=== PATIENT | male | born 2000 | race Caucasian/White ===

== ENCOUNTER 2021-05-18 07:00 | Outpatient (REF) | payer OTHER, SELFPAY ==
[2021-05-18 07:38] LABS: COVID-19 Test Negative (Negative)
== END 2021-05-18 07:01 | disposition home or self-care (01) ==
LOC: HO.LAB 07:00
PROVIDERS: Visit Provider Internal Medicine
DX: Z20.822 Contact with and (suspected) exposure to COVID-19 (principal)
CPT/HCPCS: 87635

== ENCOUNTER 2022-02-04 11:57 | Emergency (ER) | payer OTHER, SELFPAY ==
[2022-02-04 14:02] VITALS: BP 122/72; PULSE 63; RESP 18; TEMP 36.7; O2SAT 99; BMI 20.3
--- NOTE | 2022-02-04 14:03 | ED_ITS ---
HPI - General Adult General Chief complaint: Body Fluid Exposure Stated complaint: Scratch from PT Time Seen by Provider: 02/04/22 14:03 Source: patient Mode of arrival: ambulatory Limitations: no limitations History of Present Illness HPI narrative: Patient is a 21 year old male presenting to the emergency department today with a right forearm abrasion. 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 Patient states that the patient is a known IV drug user and the abrasion was bleeding. Patient denies any dizziness, lightheadedness, abdominal pain, nausea, vomiting, fever, chills, blurry vision, double vision, loss of vision, chest pain, difficulty breathing, shortness of breath, back pain, night sweats, pain with urination, increased urinary frequency, increased urinary urgency, blood in his urine or stool, syncope or a near syncopal episode, bowel incontinence, bladder incontinence, bowel retention, bladder retention, or any other complaints at this time. Onset (ago): hour(s) Location: right and upper extremity Radiation: non-radiation Severity: mild Severity scale (1-10): 2 Quality: dull Pain Consistency: constant Relieving factors: none Exacerbating factors: none Associated symptoms: denies other symptoms Treatments prior to arrival: none Related Data Allergies Allergy/AdvReac Type Severity Reaction Status Date / Time No Known Allergies Allergy Verified 02/04/22 14:02 Review of Systems Constitutional: Constitutional: Reports no additional constitutional complaints, Denies chills, Denies fever(s) and Denies night sweats Eyes: Eyes: Reports no additional eye complaints, Denies blurry vision, Denies change in vision, Denies diplopia, Denies eye discharge, Denies loss of vision and Denies eye pain ENT: Denies dizziness Cardiovascular: Cardiovascular: Reports no additional cardiovascular complaints, Denies chest pain, Denies lightheadedness, Denies Loss of Consciousness and Denies dyspnea Respiratory: Respiratory: Reports no additional respiratory complaints and Denies dyspnea Gastrointestinal: Gastrointestinal: Reports no additional gastrointestinal complaints, Denies abdominal pain, Denies melena, Denies hematochezia, Denies change in bowel habits and Denies change in stool character Genitourinary: Genitourinary: Reports no additional male genitourinary complaints, Denies hematuria, Denies oliguria, Denies difficulty urinating, Denies dysuria, Denies urinary frequency, Denies urinary hesitancy, Denies urinary incontinence and Denies urinary urgency Musculoskeletal: Musculoskeletal: Reports no additional musculoskeletal complaints, Denies numbness and Denies tingling Integumentary/Breasts: Comments: right forearm abrasion Neurologic: Denies dizziness, Denies loss of vision, Denies numbness and Denies tingling Psychiatric: Psychiatric: Reports no additional psychiatric complaints Endocrine: Endocrine: Reports no additional endocrine complaints Hematologic/Lymphatic: Hematologic/Lymphatic: Reports no additional hematologic/lymphatic complaints Allergic/Immunologic: Allergic/Immunologic: Reports no additional allergic/immunologic complaints [facility] Past Medical History Attestation statement: The following information was validated with the patient. Source: old records reviewed Social History Social History Advance Directives: No Advance Directives Information Provided: Yes Physical Exam ED Vital Signs: Vital Signs - 24 hr 02/04/22 14:02 Temperature 98.1 F Pulse Rate 63 Respiratory Rate 18 Blood Pressure 122/72 Pulse Oximetry 99 Oxygen Delivery Method Room Air BMI result Body Mass Index 20.3 Const General: cooperative, no acute distress, alert and awake Nutritional Appearance: well nourished Orientation/consciousness: patient oriented x3 Limitations: no limitations HENMT Head: Yes normal to inspection and Yes atraumatic Ears: hearing grossly normal bilaterally and external ears normal General nose exam: Normal external nose present, no nasal discharge noted and no epistaxis Face and sinus: Yes normal facial exam, No abrasion and No laceration Mouth: Normal oral and palatal mucosa present, no drooling and no muffled voice Eyes General: appearance normal, both eyes and all related structures Periorbital: periorbital findings normal Eyelids: Yes eyelids normal Conjunctivae: conjunctivae normal Pupils: Equal, round and reactive pupils present EOM: EOMs intact bilaterally Neck Neck: Yes normal visual inspection, Yes full ROM and Yes no lymphadenopathy Chest Chest palpation & inspection: normal inspection of the chest Resp Effort & Inspection: normal respiratory effort and able to speak in complete sentences Auscultation: clear to auscultation bilaterally Cardio Rate: regular rate Rhythm: regular rhythm GI Inspection: Yes normal to inspection Skin Other: right forearm abrasion, no active bleeding Neuro General: patient oriented x3 and moves all extremities Cranial nerves: Yes Equal, round and reactive pupils present Cognition (Neuro): normal cognition Motor exam (neuro): 5/5 motor strength present throughout Sensory Exam: Normal double simultaneous stimulation for sensation Coordination: [id number] test normal Extrem General: Yes normal to inspection, Yes full ROM and Yes capillary refill normal Psych Appearance: grossly normal Mental Status: mental status grossly normal Affect: normal affect Attitude: cooperative Thought process: Normal thought process present Thought content: Normal thought content present Insight: Good insight present (Psych) Medical Decision Making MDM Narrative Medical decision making narrative: Patient is a 21 year old male presenting to the emergency department today with right forearm abrasion. Patient's physical exam showed a small abrasion on the right dorsal forearm with no active bleeding. Patient's exposure blood work is pending. At this time, the patient does not need PrEp medication and will wait for results. I explained my physical exam findings to the patient. I answered all questions asked by the patient. I stressed the importance of the patient taking his medication as prescribed. I stressed the importance of the patient following up with his primary care provider. I stressed the importance of the patient returning to the emergency department immediately if his symptoms were to worsen or if he were to develop any dizziness, shortness of breath, difficulty breathing, chest pain, blurry vision, loss of vision, nausea, vomiting, abdominal pain, fever, chills, back pain, or any other complaints. Patient verbalized agreement and understanding with this treatment plan and discharge. Medical Records Medical records reviewed: Yes I reviewed the patient's medical records. Lab Data Lab results reviewed: Yes I reviewed the patient's lab results. Discharge Plan Discharge Clinical Impression: Abrasion, Employee exposure to body fluids Patient Disposition: Home, Self-Care Instructions: Abrasion (ED), Body Substance Exposure (ED) Additional Instructions: Keep the abrasion clean. Follow up with your primary care provider. Return to the emergency department immediately if your symptoms worsen or if you develop any dizziness, shortness of breath, difficulty breathing, chest pain, blurry vision, loss of vision, nausea, vomiting, abdominal pain, fever, chills, back pain, or any other complaints. Referrals: [facility] Family Medicine [Provider Group] (Call to establish and follow up with a primary care provider. If you already have a primary care provider, please follow up with them. ) [facility] [Provider Group] (Call to establish and follow up with a primary care provider. If you already have a primary care provider, please follow up with them. ) [facility] [Provider Group] (Call to establish and follow up with a primary care provider. If you already have a primary care provider, please follow up with them. ) Print Language: Turkish
[2022-02-04 15:08] LABS: HBS Num1 84.77 mIU/mL (0-7.99); HBc Num1 0.04 S/CO (0.00-0.79); HBsAGNum1 0.27 S/CO (0.00-0.99); HIV AB/AG Nonreactive (Nonreactive); HIV Num 1 0.06 S/CO (0.00-0.99); Hepatitis B Core Antibody Nonreactive (Nonreactive); Hepatitis B Surface Antigen Negative (Negative); ~HepC Num1 0.42 S/CO (0.00-0.79); ~Hepatitis B Surface Antibody REACTIVE (Nonreactive); ~Hepatitis C Antibody Nonreactive (Nonreactive)
== END 2022-02-04 14:32 | disposition home or self-care (01) ==
PROVIDERS: Physician Assistant Medical; Emergency Provider Internal Medicine; PCP Pediatrics
DX: S50.811A Abrasion of right forearm, initial encounter (principal); M79.631 Pain in right forearm; Y04.8XXA Assault by other bodily force, initial encounter; Y93.9 Activity, unspecified; Y92.239 Unspecified place in hospital as the place of occurrence of the external cause; Y99.0 Civilian activity done for income or pay; Z77.21 Contact with and (suspected) exposure to potentially hazardous body fluids; Z79.899 Other long term (current) drug therapy
CPT/HCPCS: 36415; 86704; 86706; 86803; 87340; 87389; 99282; 99283

== ENCOUNTER 2022-03-20 07:34 | Emergency (ER) | payer BC, SELFPAY ==
--- NOTE | ~2022-03-20 | XR_ITS ---
EXAMINATION: XR CHEST CLINICAL INFORMATION: Right-sided chest pain, feels fluttering with inspiration. COMPARISON: None TECHNIQUE: 2 views of the chest were obtained. FINDINGS: No significant abnormality is noted involving the heart, lungs, mediastinum, bony thorax or soft tissues. XR/XR chest 2V IMPRESSION: No acute cardiopulmonary process.
--- OUTSIDE RECORDS SUMMARY | 2022-03-20 07:37 | XMS_ITS | Continuity of Care Document ---
:2000 Author Organization [facility] Care Team Providers Name Role Phone [facility] Unavailable Unavailable Medications Combined list of outpatient medications from Department of Defense and Veterans [facility] facilities. Medications provided include 1) outpatient medications from the last 15 months, and 2) patient-reported medications. Medication Details Route Status Patient Prescription Prescription Last Ordering Order Source Instructions Expires Number Dispense Provider Date Date erythromyci Left Complet 09/28/2020 A mbulat n 0.5% 1 appl(s), Eye-Left, QID, X 5 days, # 3.5 g, 0 total refill(s), Acute, 1 appl(s) Eye-Left QID,x5 days, Pharmacy: [facility] [Not active] eye ed ory ophthalmic Pharmac ointment y hydrocortis hydrocortisone 1% topical cream Ordered Ambulat one 1% Start Date: 07/15/20 ory topical Status: Ordered Ph armac cream y Immunizations Combined list of available immunizations from the Department of Defense and Veterans Affairs facilities. 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 Vital Sign Value Date Comments Source Systolic Blood Pressure 118mm[Hg] 09/23/2020 [facility]00 Diastolic Blood Pressure 68mm[Hg] 09/23/2020 [facility] 22:18:00 Mean Arterial Pressure, 85mm[Hg] 09/23/2020 [facility] Calc 22:18:00 Peripheral Pulse Rate 91bpm 09/23/2020 [facility] 22:18:00 Respiratory Rate 18br/min 09/23/2020 [facility] 22:18:00 Temperature Temporal 37.2Cel 09/23/2020 [facility] Artery 22:18:00 BP Site 09/23/2020 [facility] jeana 22:18:00 Blood Pressure Manual 09/23/2020 [facility] 22:18:00 Encounters Combined list of: 1) Encounters from Department of Veterans Affairs facilities going back up to the last 18 months. 2) Encounters from the Department of Defense facilities going back up to 280 months. Location Location Encounter Encounter Reason Attending ADM DC Stat us Disposition Source Details Type Number For Provider Date Date Visit OUTPATIENT [id number] Notes DANNIELLE 05/17 Release d w/o General 3 Entered TRUNG Osman simmons by: GERA Butts May Marg[place], 636 [place](IEP ------- [place] ------- s ------- Initial ------- Entry) -- DAY 1 003 OUTPATIENT [id number] PHILLIP 05/18 Release d w/o General 5 JUN Limitations [facility]el [facility] [place] [facility] OUTPATIENT [id number] Gill DODSON 05/18 Released w/o General 5 Entered VINCENT Boss Osman baezd by: Christiane Dent [facility] May [place], 1038 [place](IEP ------- Hearing ------- Conserv ------- ation ------- Exam) -- 003 OUTPATIENT [id number] Gill PANDYA 05/20 Relea sed w/o General 9 Entered BORIS Limitations Keira simmons by: CHRISTIANE HUITRON [facility] KATHRYN Robison [place](IEP 0624 [place] ------- s ------- Initial ------- Entry) ------- -- [id number] Day3 003 OUTPATIENT [id number] OCTAVIO Aguiar 06/16 Admit stacey General 2 Entered Ricki by: Janae Kimball DAYANA Robison Jun [place](Opsu 1008 rge ------- Multi-S ------- pecialt ------- y) ------- -- ISOLATI ON OUTPATIENT [id number] Notes ELANA, 07/13 Released w/o General 4 Entered KATHRYN Limitations Suzy rd by: SKYLAR DANG [facility] ,GERA [place], [address] [place](IEP ------- [place] ------- s ------- Initial ------- Entry) -- C CO 787 PED B/MAKAYLA OUTPATIENT [id number] Notes SHAHIDA, 08/01 08/01 Released w/o General 4 Entered PETER N /2020 Osman Haddad nahun by: Margarito BAILEY N,COLLIN [place], 1548 [place](AMH ------- M01B ------- Marie) ------- ------- -- COVID Testing (contac t) Procedures Combined list of: 1) Procedures from Department of Veterans Affairs facilities going back up to the last 18 months, not all VA non-surgical procedures are included; 2) All procedures from the Department of Defense facilities. Procedure Procedure Type Code Date Perfomer Comments Sourc e No data available Am bulatory for this section [facility] [address] VINCENT DODSON [facility] Testing Testing [place] [address] [facility] Visual Acuity, Visual Acuity, JUN M Quantitative, Quantitative, Bilateral Bilateral Venipuncture Venipuncture 95366 [facility] TRUNG RBC G6PD Screening RBC G6PD Screening 53995 [facility] TRUNG Meningococcal Meningococcal 53593 [facility] Polysaccharide Polysaccharide CHANI, Diphtheria Toxoid Diphtheria Toxoid CHRISTIANE N Conjugate Vaccine Conjugate Vaccine Immunization Immunization 96301 MARREROJIME Do D Administration By Administration By CHANI, Injection, One Injection, One CHRISTIANE N Vaccine Vaccine Immunization Immunization 47999 MARREROJIME Do D Administration By Administration By CHANI, Injection, Each Injection, Each CHRISTIANE N Additional Vaccine Additional Vaccine Hep B Vaccine Hep B Vaccine 18527 [facility] (Active); (Active); CHANI, Adolescent (2 Dose Adolescent (2 Dose CHRISTIANE N Schedule) Schedule) Vaccines Viral Vaccines Viral 85764 [facility] Varicella (Active) Varicella (Active) CHANI, CHRISTIANE N Tdap Vaccine Tdap Vaccine 72437 [facility] Do D CHANI, CHRISTIANE N Vaccines Viral Vaccines Viral 50986 [facility] Polio, Inactivated Polio, Inactivated CHANI, CHRISTIANE N Physician Physician 20473 [facility] Supervised Supervised CHANI, Injection Injection CHRISTIANE N Intramuscular Intramuscular Antibiotic Antibiotic Vaccines Vaccines 80269 [facility] Adenovirus Type 4 Adenovirus Type 4 CHANI, Live, For Oral Use Live, For Oral Use CHRISTIANE N Vaccines Vaccines 75893 [facility] Adenovirus Type 7 Adenovirus Type 7 CHANI, Live, For Oral Use Live, For Oral Use CHRISTIANE N Viral Flu Vacc Viral Flu Vacc 23347 [facility] Cell Culture Cell Culture CHANI, Deriv, Antibiotic Deriv, Antibiotic CHRISTIANE N Free, Free, Quadrivalent, Quadrivalent, 0.5mL, IM 0.5mL, IM INFLUENZA VIRUS 05/20/19 [facility] VACCINE, 21 QUADRIVALENT (CCIIV4), DERIVED FROM CELL CULTURES, SUBUNIT, ANTIBIOTIC FREE, 0.5 ML DOSAGE, FOR INTRAMUSCULAR USE AUDIOMETRIC 05/18/19 [facility] TESTING OF GROUPS 21 SCREENING TEST OF 05/18/19 Do D VISUAL ACUITY, 21 QUANTITATIVE, BILATERAL [id number] 05/17/19 D oD E DEHYDROGENASE 21 (G6PD); SCREEN Social History Combined list of available smoking, tobacco, and other social history from Department of Defense andVeterans Affairs facilities. Social History Type Response Date Comment Source Smoking Status Never (less than 100 09/23/2020 [facility] in lifetime) This section is an [facility] empty social history section. Assessment and Plan Combined list of future care activities from Department of Defense and Veterans Affairs facilities (e.g., assessment and plan notes, appointments, orders, and referrals). Additional future care activities may be listed in the Plan of Care section. Result Assessment and Plan Date Source Assessment and Plan Extracted from:Title: L upper eyelid stye [facility]ulatory [facility] Author: SHYAM KELLY NP Date: 09/23/20 1.?Hordeolum internum of left upper eyelid ?Pt is a 20 yo male Basic [facility] who presents today for 24 hours of L upper eyelid swelling. Pt treated with erythromycin ointment. ? Medications ?erythromycin 0.5% ophthalmic ointment, 1 appl( s), Eye-Left, QID ? ? Patient instructed to visit nearest emergency room for new or worsening symptoms, high fevers, chest pain, difficulty breathing or swallowing, vomiting, or with any questions or concerns.? Followu p with primary care provider in the next few days if symptoms persist. I have discussed my thought process, likely diagnosis, plan of care and strict followup and return precautions with the patient/fam amber. I also explained that? disease processes also involve in today's diagnosis is made based on current symptoms. Should the symptoms change, a new diagnosis maybe substituted. Patient/family were pleased with the care and verbalized agreement with the plan of care and follow-up. Questions/concerns addressed. ? ? ? Ordered: Office Visit Level 2 Est 83652 ? CPT Shyam Kelly DNP Family Nurse Practitioner LOCATED WITHIN [facility] ? ? ? Functional Status Combined list of recent functional and cognitive assessments recorded at Department of Defense and Veterans Affairs (VA).VA Functional [place] Measurement (FIM) Scale: 1 = Total Assistance (Subject = 0% +), 2 = Maximal Assistance (Subject = 25% +), 3 = Moderate Assistance (Subject = 50% +), 4 = Mi nimal Assistance (Subject = 75% +), 5 = Supervision, 6 = Modified [place] (Device), 7 = Complete [place] (Timely, Safely). Assessment Source Assessment Type Assessment Assessment Assessmen t Date/Time Skill Score Details No data available for this section
--- OUTSIDE RECORDS SUMMARY | 2022-03-20 07:37 | XMS_ITS ---
:2001 External Reference #:[id number] Author Care Team Providers Name Role Phone Ruddy Cheney Primary Care Provider Unavailable Allergies Code Code System Name Reaction Severity Status Onset NKDA ? Medications Name Status Start Date Stop Date ? ? amoxicillin 500 mg capsule Active ? Not a vailable TAKE 1 CAPSULE BY MOUTH TWICE A DAY FOR 10 DAYS naproxen 500 mg tablet Completed ? 9 prednisone 20 mg tablet Active ? Not avai lable TAKE 2 TABLETS BY MOUTH EVERY DAY FOR 5 DAYS tobramycin 0.3 % eye drops Active ? Not a vailable Problems Name Status Onset Date Source ? Headache Active 11/03/2018 ? Procedures Date Name Performed by ? 03/24/2019 [facility] Main Office [address] [place] [address] (Work Place) Results Lab Results Date Name Specimen Result Interpretation Description Value Range Status Address ? 09/14/2021 Strep Group a, ? New Strep negative ? ? Main DNA, Swab Rapid Dna Offi ce: [address], [place] 09/14/2021 Mononucleosis, Blood ? [place] positive ? ? Main Heterophile Ab, capillary Office: [address], [place] 03/24/2019 Hemoglobin Blood ? Results 15.0 ? ? Main (Hb), capillary Office: [address], [place] 03/24/2019 [facility] ? Right Ear normal ? ? Main 500Hz Office: [address], [place] ? ? ? Left Ear normal ? ? Main 500Hz Office: [address], [place] ? ? ? Right Ear normal ? ? Main 1000Hz Office: [address], [place] ? ? ? Left Ear normal ? ? Main 1000Hz Office: [address], [place] ? ? ? Right Ear normal ? ? Main 2000Hz Office: [address], [place] ? ? ? Left Ear normal ? ? Main 2000Hz Office: [address], [place] ? ? ? Right Ear normal ? ? Main 4000Hz Office: [address], [place] ? ? ? Left Ear normal ? ? Main 4000Hz Office: [address], [place] 03/24/2019 Visual Acuity* ? R Eye 20/20 ? ? Main Uncorrected Offic e: [address], [place] ? ? ? L Eye 20/20 ? ? Main Uncorrected Offic e: [address], [place] Past Encounters 10/05/2021 Infectious Mononucleosis; Patient Condit ion Resolved Ariella Hernandez, VANNP: [address] [facility] [address], [place] [address], Ph. 09/14/2021 Pain in Throat; Infectious Mononucleosis ; Enlarged Tonsil Patti Marie, CPNP: [address], [place] [address], Ph. Social History Tobacco Smoking Status Never Smoker Vaccine List Vaccine Type DTaP 2001 2001 2001 09/09/2002 03/12/2006 Hep A, ped/adol, 2 dose 05/24/2014 06/16/2016 Hep B, unspecified formulation 2001 2001 2001 Hib, unspecified formulation 2001 2001 09/09/2002 Influenza, injectable,quadrivalent, pres ervative free, pediatric 05/22/2013 IPV 2001 2001 09/09/2002 03/12/2006 MCV4, unspecified formulation 08/27/2012 03/25/2017 MMR 06/10/2002 03/12/2006 pneumococcal conjugate PCV 7 2001 2001 2001 Tdap 08/27/2012 varicella 2002 08/25/2010 Plan of Care Reminders Provider Appointments None recorded. ? ? Lab None recorded. ? ? Referral None recorded. ? ? Procedures None recorded. ? ? Surgeries None recorded. ? ? Imaging None recorded. ? ? Vitals 10/05/2021 08:00AM OFFICE VISIT Weight 131 lbs 5 oz 09/14/2021 08:30AM SICK VISIT Weight 132 lbs 5 oz 03/24/2019 05:00PM 19 YEAR PHYSICAL Height Weight BMI Blood Pressure 66 in 126 lbs 20.3 kg/m2 100/60 mm[Hg] 03/18/2018 Height Weight BMI Blood Pressure 66 in 124 lbs 5 oz 20.1 kg/m2 112/62 mm[Hg] 03/25/2017 Height Weight BMI Blood Pressure 65.5 in 119 lbs 16 oz 19.7 kg/m2 110/76 mm[Hg]
[2022-03-20 07:58] VITALS: BP 126/74; PULSE 80; RESP 20; TEMP 36.6; O2SAT 99; BMI 21.1
[2022-03-20 08:27] LABS: COVID-19 Test Negative (Negative)
[2022-03-20 08:30] LABS: IDNOW Serial# 16C4AD1C; Influenza A Negative (Negative); Influenza B2 Negative (Negative)
--- NOTE | 2022-03-20 09:30 | ECG_ITS ---
Test Reason : CHEST PAIN Blood Pressure : / mmHG Vent. Rate : 067 BPM Atrial Rate : 067 BPM P-R Int : 148 ms QRS Dur : 104 ms QT Int : 366 ms P-R-T Axes : 072 084 061 degrees QTc Int : 386 ms Normal sinus rhythm with sinus arrhythmia RSR' or QR pattern in V1 suggests right ventricular conduction delay Otherwise normal ECG No previous ECGs available Referred By: Rajat Dickson Electronically Signed By:DOMINICK MAXWELL MD
[2022-03-20 09:41] VITALS: O2SAT 98
[2022-03-20 09:44] VITALS: BP 121/74; PULSE 64; RESP 16; O2SAT 98
[2022-03-20 09:55] LABS: MANUAL DIFF FLAG NO
[2022-03-20 09:57] LABS: Basophils Percent Auto 0.7 % (0-2); Eosinophils Absolute Auto 0.3 X10*3/uL (0.0-0.4); Eosinophils Percent Auto 5.9 % (0-4); Hematocrit 47.2 % (42.0-52.0); Hemoglobin 15.8 g/dl (14.0-18.0); Imm Gran Abs Auto 0.01 X10*3/uL (0.00-0.03); Imm Gran Pct Auto 0.2 % (0.0-0.4); Lymphocytes Absolute Auto 1.1 X10*3/uL (1.2-4.9); Lymphocytes Percent Auto 20.4 % (20-40); Mean Corpuscular HGB Conc 33.5 g/dl (31.0-36.0); Mean Corpuscular Hemoglobin 28.6 pg (27.0-33.0); Mean Corpuscular Volume 85.4 fL (80.0-98.0); Mean Platelet Volume 9.6 fL (9.4-12.4); Monocytes Absolute Auto 0.4 X10*3/uL (0.1-1.2); Monocytes Percent Auto 7.7 % (2-11); Neutrophils Absolute Auto 3.6 x10*3/uL (2.0-8.3); Neutrophils Percent Auto 65.1 % (45-73); Platelet Count 218 X10*3/uL (160-400); Red Blood Count 5.53 X10*6/uL (4.60-5.80); White Blood Count 5.6 X10*3/uL (4.8-10.8)
--- NOTE | 2022-03-20 10:09 | ED_ITS ---
HPI - General Adult General Chief complaint: Upper Respiratory Symptoms Stated complaint: Chest pain Time Seen by Provider: 03/20/22 09:17 Source: patient Mode of arrival: ambulatory Limitations: no limitations History of Present Illness HPI narrative: 22-year-old male presents to ED for coughing for 2 weeks and also pleurisy and right-sided chest pain. Patient states coughing has improved but still has the pleurisy which is pain on deep inspiration. Patient denies any recent trauma, recent long travel, leg swelling, calf pain, coughing up blood. Patient denies anyone suddenly from heart issues or lung issues less than 40 in his family. Related Data Previous Rx's Medication Instructions Recorded naproxen 500 mg tablet 500 mg PO BID PRN pain 7 days #14 03/20/22 tabs Allergies Allergy/AdvReac Type Severity Reaction Status Date / Time No Known Allergies Allergy Verified 02/04/22 14:02 Review of Systems Review of Systems: Cough. Pleurisy. Right-sided chest pain Yes all other systems are reviewed and are negative [facility] Social History Social History Alcohol intake: current Alcohol intake frequency: a few times a week Smoked in Last 30 Days: No Use of substances other than those prescribed or required for medical reasons: No Advance Directives: No Physical Exam ED Vital Signs: Vital Signs - 24 hr 03/20/22 07:58 03/20/22 09:41 03/20/22 09:44 Temperature 97.8 F Pulse Rate 80 64 Respiratory Rate 20 16 Blood Pressure 126/74 121/74 Pulse Oximetry 99 98 98 Oxygen Delivery Method Room Air Room Air BMI result Body Mass Index 21.1 Const General: cooperative, healthy appearing, comfortable, no acute distress, well developed, alert, awake and Physically active Orientation/consciousness: oriented to person, oriented to place, oriented to time and patient oriented x3 HENMT Head: Yes normal to inspection, Yes No palpable skull fracture present, Yes normocephalic, Yes atraumatic and No abrasion Eyes General: appearance normal, both eyes and all related structures Neck Neck: Yes normal visual inspection, Yes full ROM, Yes no lymphadenopathy, Yes no meningeal signs, Yes trachea midline, Yes supple, No anterior neck swelling and No tender Chest Chest palpation & inspection: normal inspection of the chest Chest/axillae images: 1. Positive for tenderness on palpation. Negative for rash, ecchymosis, or crepitus. Resp Effort & Inspection: normal respiratory effort and able to speak in complete sentences Auscultation: clear to auscultation bilaterally Cardio Jugular venous distension: no JVD Heart sounds: S1 normal heart sound present and S2 normal heart sound present GI Inspection: Yes normal to inspection and No abdominal wall ecchymosis Palpation (GI): Soft to palpation, not firm, nontender, no guarding and not rigid General: No CVA tenderness and Yes no CVA tenderness Back/Spine/Pelvis Back: no CVA tenderness, No CVA tenderness and No back tenderness Skin General skin exam: no rashes or lesions noted and elasticity normal Neuro General: oriented to person, oriented to place, oriented to time, patient oriented x3, gait normal, no meningeal signs and CN's II-XI intact bilaterally Cranial nerves: Yes CN's II-XII intact bilaterally Extrem Other: Lower extremities negative for swelling, pitting edema, or calf tenderness General: Yes normal to inspection and Yes full ROM Psych Appearance: grossly normal, well kempt and not disheveled Course Course Course Narrative: COVID and influenza swab were negative. Chest x-ray was normal. Due to patient stating pleurisy will do labs EKG and dimer although very unlikely PE. Most likely costochondritis. Reevaluation(s) Reevaluation #1: EKG negative STEMI. Troponin negative. Heart score 0. D-dimer negative. Perc Score negative. patient is not in distress. Costochondiritis Time: 22:[address] [facility] Narrative Medical decision making narrative: Costchondritis Lab Data Result diagrams: 03/20/22 09:44 03/20/22 09:44 Labs: Lab Results 03/20/22 03/20/22 03/20/22 Range/Units 08:04 08:04 09:44 WBC 5.6 (4.8-10.8) X10*3/uL RBC 5.53 (4.60-5.80) X10*6/uL Hgb 15.8 (14.0-18.0) g/dl Hct 47.2 (42.0-52.0) % MCV 85.4 (80.0-98.0) fL MCH 28.6 (27.0-33.0) pg MCHC 33.5 (31.0-36.0) g/dl RDW 12.0 (11.0-16.0) % Plt Count 218 (160-400) X10*3/uL MPV 9.6 (9.4-12.4) fL Immature Gran % (Auto) 0.2 (0.0-0.4) % Neut % (Auto) 65.1 (45-73) % Lymph % (Auto) 20.4 (20-40) % [place] % (Auto) 7.7 (2-11) % Eos % (Auto) 5.9 H (0-4) % Baso % (Auto) 0.7 (0-2) % Lymph # (Auto) 1.1 L (1.2-4.9) X10*3/uL [place] # (Auto) 0.4 (0.1-1.2) X10*3/uL Eos # (Auto) 0.3 (0.0-0.4) X10*3/uL Baso # (Auto) 0.0 (0.0-0.2) X10*3/uL Abs Immat Gran (auto) 0.01 (0.00-0.03) X10*3/uL Absolute Neuts (auto) 3.6 (2.0-8.3) x10*3/uL Absolute Nucleated RBC 0.000 (0.0-0.012) X10*3/uL Nucleated RBC % (auto) 0.0 (0.0-0.2) /100WBC PT (10.0-13.1) SEC INR (0.9-1.1) APTT (26.0-36.4) SEC D-Dimer High Sensitivty NG/ML Sodium (135-145) mmol/L Potassium (3.3-5.1) mmol/L Chloride (96-108) mmol/L Carbon Dioxide (22-29) mmol/L Anion Gap (12-20) BUN (9-16) mg/dL Creatinine (0.5-1.4) mg/dL Estim Creat Clear Calc Estimated GFR Random Glucose (60-115) mg/dL Calcium (8.4-10.2) mg/dL Total Bilirubin (0.0-1.0) mg/dL AST (5-37) U/L ALT (0-40) U/L Alkaline Phosphatase (39-117) U/L Troponin I High Sens (<3.5-35.0) ng/L B-Natriuretic Peptide (<100) pg/mL Total Protein (6.5-8.0) g/dL Albumin (3.5-5.0) g/dL COVID-19 ([facility]) Negative (Negative) COVID-19 Clin Com See Note Influenza Type A (DONITA) Negative (Negative) Influenza Type B ([facility]ITA) Negative (Negative) Influenza A & B Note See Note 03/20/22 03/20/22 03/20/22 Range/Units 09:44 09:44 09:44 WBC (4.8-10.8) X10*3/uL RBC (4.60-5.80) X10*6/uL Hgb (14.0-18.0) g/dl Hct (42.0-52.0) % MCV (80.0-98.0) fL MCH (27.0-33.0) pg MCHC (31.0-36.0) g/dl RDW (11.0-16.0) % Plt Count (160-400) X10*3/uL MPV (9.4-12.4) fL Immature Gran % (Auto) (0.0-0.4) % Neut % (Auto) (45-73) % Lymph % (Auto) (20-40) % [place] % (Auto) (2-11) % Eos % (Auto) (0-4) % Baso % (Auto) (0-2) % Lymph # (Auto) (1.2-4.9) X10*3/uL [place] # (Auto) (0.1-1.2) X10*3/uL Eos # (Auto) (0.0-0.4) X10*3/uL Baso # (Auto) (0.0-0.2) X10*3/uL Abs Immat Gran (auto) (0.00-0.03) X10*3/uL Absolute Neuts (auto) (2.0-8.3) x10*3/uL Absolute Nucleated RBC (0.0-0.012) X10*3/uL Nucleated RBC % (auto) (0.0-0.2) /100WBC PT 11.7 (10.0-13.1) SEC INR 1.0 (0.9-1.1) APTT 34.5 (26.0-36.4) SEC D-Dimer High Sensitivty < 150 NG/ML Sodium 140 (135-145) mmol/L Potassium 4.4 (3.3-5.1) mmol/L Chloride 104 (96-108) mmol/L Carbon Dioxide 23 (22-29) mmol/L Anion Gap 17 (12-20) BUN 14 (9-16) mg/dL Creatinine 0.83 (0.5-1.4) mg/dL Estim Creat Clear Calc 121.9 Estimated GFR > 60 Random Glucose 89 (60-115) mg/dL Calcium 9.5 (8.4-10.2) mg/dL Total Bilirubin 0.5 (0.0-1.0) mg/dL AST 27 (5-37) U/L ALT 45 H (0-40) U/L Alkaline Phosphatase 109 (39-117) U/L Troponin I High Sens < 3.5 (<3.5-35.0) ng/L B-Natriuretic Peptide (<100) pg/mL Total Protein 7.5 (6.5-8.0) g/dL Albumin 4.7 (3.5-5.0) g/dL COVID-19 ([facility]) (Negative) COVID-19 Clin Com Influenza Type A ([facility]) (Negative) Influenza Type B ([facility]) (Negative) Influenza A & B Note 03/20/22 Range/Units 09:44 WBC (4.8-10.8) X10*3/uL RBC (4.60-5.80) X10*6/uL Hgb (14.0-18.0) g/dl Hct (42.0-52.0) % MCV (80.0-98.0) fL MCH (27.0-33.0) pg MCHC (31.0-36.0) g/dl RDW (11.0-16.0) % Plt Count (160-400) X10*3/uL MPV (9.4-12.4) fL Immature Gran % (Auto) (0.0-0.4) % Neut % (Auto) (45-73) % Lymph % (Auto) (20-40) % [place] % (Auto) (2-11) % Eos % (Auto) (0-4) % Baso % (Auto) (0-2) % Lymph # (Auto) (1.2-4.9) X10*3/uL [place] # (Auto) (0.1-1.2) X10*3/uL Eos # (Auto) (0.0-0.4) X10*3/uL Baso # (Auto) (0.0-0.2) X10*3/uL Abs Immat Gran (auto) (0.00-0.03) X10*3/uL Absolute Neuts (auto) (2.0-8.3) x10*3/uL Absolute Nucleated RBC (0.0-0.012) X10*3/uL Nucleated RBC % (auto) (0.0-0.2) /100WBC PT (10.0-13.1) SEC INR (0.9-1.1) APTT (26.0-36.4) SEC D-Dimer High Sensitivty NG/ML Sodium (135-145) mmol/L Potassium (3.3-5.1) mmol/L Chloride (96-108) mmol/L Carbon Dioxide (22-29) mmol/L Anion Gap (12-20) BUN (9-16) mg/dL Creatinine (0.5-1.4) mg/dL Estim Creat Clear Calc Estimated GFR Random Glucose (60-115) mg/dL Calcium (8.4-10.2) mg/dL Total Bilirubin (0.0-1.0) mg/dL AST (5-37) U/L ALT (0-40) U/L Alkaline Phosphatase (39-117) U/L Troponin I High Sens (<3.5-35.0) ng/L B-Natriuretic Peptide < 10 (<100) pg/mL Total Protein (6.5-8.0) g/dL Albumin (3.5-5.0) g/dL COVID-19 ([facility]) (Negative) COVID-19 Clin Com Influenza Type A ([facility]) (Negative) Influenza Type B ([facility]) (Negative) Influenza A & B Note ECG Data Attestation: I personally reviewed and interpreted this ECG as follows: Interpretation: Normal Sinus rhythr VEnt rate 67 , GA 148, QRS 104, QTC 386 Discharge Plan Discharge Clinical Impression: Acute costochondritis, URI (upper respiratory infection) Patient Disposition: Home, Self-Care Instructions: Costochondritis (ED), Upper Respiratory Infection (ED) Additional Instructions: Your EKG and blood work came back negative for heart attack, or risk of blood clots. Chest x-ray negative for pneumonia. You are negative for COVID influenza. Please follow-up with a primary care provider. Return to the ED immediately any leg swelling, calf pain, coughing up blood, worsening chest pain, shortness of breath, abdominal pain, nausea, vomiting, or any other concerning symptoms. You can return to work. Prescriptions: New naproxen 500 mg tablet 500 mg PO BID PRN (Reason: pain) 7 Days Qty: 14 0RF Interventions: ED Discharge Assessment Last Done: 03/20/22 11:10 Discharge Date/Time: 03/20/22 11:11 Print Language: Congolese
[2022-03-20 10:12] LABS: Prothrombin Time 11.7 SEC (10.0-13.1)
[2022-03-20 10:14] LABS: Partial Thromboplastin Time 34.5 SEC (26.0-36.4)
[2022-03-20 10:16] LABS: D Dimer High Sensitivity < 150 NG/ML
[2022-03-20 10:21] LABS: Alanine Aminotransferase 45 U/L (0-40); Albumin Level 4.7 g/dL (3.5-5.0); Alkaline Phosphatase 109 U/L (39-117); Anion Gap 17 (12-20); Aspartate Amino Transferase 27 U/L (5-37); Bilirubin Total 0.5 mg/dL (0.0-1.0); Blood Urea Nitrogen 14 mg/dL (9-16); Calcium 9.5 mg/dL (8.4-10.2); Carbon Dioxide 23 mmol/L (22-29); Chloride 104 mmol/L (96-108); Creatinine Clr Calc Pharmacy 121.9; Estimated Glomerular Filt Rate > 60; Glucose Random 89 mg/dL (60-115); Potassium 4.4 mmol/L (3.3-5.1); Sodium 140 mmol/L (135-145); Total Protein 7.5 g/dL (6.5-8.0)
[2022-03-20 10:23] LABS: B Type Natriuretic Peptide < 10 pg/mL (<100)
[2022-03-20 10:28] LABS: Troponin-I High Sensitivity < 3.5 ng/L (<3.5-35.0)
--- NOTE | 2022-03-20 10:30 | PC.NURSE ---
Patient reports cough x 2 weeks and chest wall pain worsening with inspiration. EKG and labs obtained. Lung sounds clear throughout. Skin pwd. Heart with regular, even rhythm with no murmurs or gallops. Awaiting results at this time. No IV established per Rajat MAGDALENO.
== END 2022-03-20 11:11 | disposition home or self-care (01) ==
PROVIDERS: Physician Assistant; Emergency Provider Emergency Medicine Emergency Medical Services; PCP Pediatrics
DX: J06.9 Acute upper respiratory infection, unspecified (principal); M94.0 Chondrocostal junction syndrome [Tietze]; Z20.822 Contact with and (suspected) exposure to COVID-19
CPT/HCPCS: 36415; 71046; 80053; 83880; 84484; 85025; 85379; 85610; 85730; 87502; 87635; 93005; 99283; 99285

== ENCOUNTER 2022-12-11 06:46 | Outpatient (REF) | payer BC, SELFPAY ==
--- NOTE | ~2022-12-11 | XR_ITS ---
EXAMINATION: XR FOOT, RIGHT XR ANKLE, RIGHT CLINICAL INFORMATION: Status post injury COMPARISON: None available. TECHNIQUE: 3 views of the right foot 2 views of the right ankle FINDINGS: No acute visible fracture or dislocation. The ankle mortise is symmetric. Joint spaces and alignment are maintained. Mild soft tissue swelling overlying the medial malleolus/talus. XR/XR ankle RT min 3V IMPRESSION: 1. No acute visible fracture or dislocation. 2. Mild soft tissue swelling overlying the medial malleolus/talus.
--- NOTE | ~2022-12-11 | XR_ITS ---
EXAMINATION: XR FOOT, RIGHT XR ANKLE, RIGHT CLINICAL INFORMATION: Status post injury COMPARISON: None available. TECHNIQUE: 3 views of the right foot 2 views of the right ankle FINDINGS: No acute visible fracture or dislocation. The ankle mortise is symmetric. Joint spaces and alignment are maintained. Mild soft tissue swelling overlying the medial malleolus/talus. XR/XR foot RT min 3V IMPRESSION: 1. No acute visible fracture or dislocation. 2. Mild soft tissue swelling overlying the medial malleolus/talus.
== END 2022-12-11 06:47 | disposition home or self-care (01) ==
LOC: HO.XRAY 06:46
PROVIDERS: Visit Provider Physician Assistant Medical
DX: M79.89 Other specified soft tissue disorders (principal)
CPT/HCPCS: 73610; 73630

== ENCOUNTER 2023-01-03 07:12 | Outpatient (REF) | payer BC, SELFPAY | END 2023-01-03 07:13 | disposition home or self-care (01) | LOC: HO.HOSX 07:12 | PROVIDERS: Visit Provider Physician Assistant | DX: Z13.89 Encounter for screening for other disorder (principal) ==

== ENCOUNTER 2023-02-06 14:23 | Outpatient (AMB) | payer BC, SELFPAY ==
--- NOTE | 2023-02-06 14:29 | A.OFFVIS_ITS ---
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 Patient reports while playing soccer another player had stomped on his foot. He had an xray done. Currently having discomfort/pain when his foot rotates, stair use and kicking the ball. He states when pain is present his pain level becomes 10 out 10. He has numbness with kicking ball. The past 2 weeks his pain has been getting worse. 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 He states he has chronic worsening stabbing pain and discomfort in his foot upon rotation and rates the pain as 10 on the scale of 0-10. His pain is aggravated with stair use and extending his foot. He also c/o numbness with kicking ball. 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 Review of Systems Const All systems reviewed & are unremarkable except as noted in HPI and below Physical Exam Vital Signs: BMI result Body Mass Index 21.9 Const General: cooperative, healthy appearing, comfortable, no acute distress, well developed and alert Orientation/consciousness: patient oriented x3 HEENT Head: Yes normal to inspection, Yes normocephalic and Yes atraumatic Eyes General: appearance normal, both eyes and all related structures Resp Effort & Inspection: normal respiratory effort and able to speak in complete sentences Cardio Rate: regular rate Peripheral pulses: Peripheral pulses 2+ throughout GI Palpation (GI): Soft to palpation Skin Lesions: no lesions Rashes: no rashes Neuro General: patient oriented x3 Extrem Other: Right foot: Normal to inspection. He has tenderness over the anterior portion of ankle and also the lateral aspect of ankle. There is no bony tenderness. He has no swelling or ecchymosis. He does have some tenderness with plantar and dorsi flexion which is located in the anterior portion of the ankle. NVI. Results Reviewed Results Reviewed: xrays of the right ankle obtained in the ED on 12/21/22 show no acute fractures or dislocation -ankle mortise intact. Assessment & Plan Assessment & Plan (1) Right ankle sprain: Code(s): S93.401A - Sprain of unspecified ligament of right ankle, initial encounter Qualifiers: Encounter type: initial encounter Involved ligament of ankle: anterior talofibular ligament Qualified Code(s): S93.491A - Sprain of other ligament of right ankle, initial encounter Plan He was given an off the shelf lace up ankle brace. I did discuss physical therapy and the benefits of working on strengthening of ankle. We are also going to send him for an MRI of ankle to further evaluate joint surface of the ankle itself given his limitations with motion and he will see me back once this is complete. Orders: Orders MR ankle RT wo con 02/06/23 S93.401A - Sprain of unspecified ligament of right ankle, initial encounter Patient Instructions: Scribed for Afia Branham PA-C, by Anselmo Moeller medical receptionist medical assistant, on 02/06/2023 at 2:30 PM EST. Afia Aguilar PA-C, have personally reviewed and agree with the information entered by the scribe. Coding Level of Care Code New Pt Level 3 (97734) Diagnoses Sprain of anterior talofibular ligament of right ankle, initial encounter S93.491A Encounter type: initial encounter Involved ligament of ankle: anterior talofibular ligament
[2023-02-06 14:42] VITALS: BMI 21.9
== END 2023-02-06 15:30 | disposition home or self-care (01) ==
PROVIDERS: PCP Pediatrics; Visit Provider Physician Assistant
DX: S93.491A Sprain of other ligament of right ankle, initial encounter (principal)
CPT/HCPCS: 99204

== ENCOUNTER → 2023-02-06 14:23 | Outpatient (BNVA) | payer BC, SELFPAY | PROVIDERS: PCP Pediatrics; Visit Provider Physician Assistant ==

== ENCOUNTER 2023-02-21 17:16 | Outpatient (REF) | payer BC, SELFPAY ==
--- NOTE | ~2023-02-21 | MR_ITS ---
EXAMINATION: MR ANKLE WITHOUT CONTRAST, RIGHT CLINICAL INFORMATION: Right ankle pain and swelling following an injury while playing soccer on 12/11/2022. Anterior joint pain. COMPARISON: Right ankle and foot radiographs dated 12/11/2022. TECHNIQUE: Multisequence MR imaging of the right ankle was obtained without contrast on a high-field strength scanner. FINDINGS: BONE AND ARTICULAR CARTILAGE: Focal patchy marrow edema within the anteromedial aspect of the talar head/neck. Findings likely represent an osseous contusion. No associated fracture line. No additional abnormal marrow signal. No talar osteochondral lesion. Intact articular cartilage. ACHILLES TENDON: Intact. OTHER TENDONS: Intact. LIGAMENTS: Slightly increased T2 signal within the deltoid ligament consistent with a grade 1 sprain/partial tear. JOINT FLUID AND SOFT TISSUES: Trace posterior subtalar joint effusion. Trace fluid within the retrocalcaneal bursa which could indicate minimal bursitis versus normal variation. PLANTAR FASCIA: Intact. SINUS TARSI AND TARSAL TUNNEL: Patent. MR/MR ankle RT wo con IMPRESSION: 1. Focal osseous contusion within the anteromedial aspect of the talar head/neck without an associated fracture line. 2. Grade 1 sprain/partial tear of the deltoid ligament. 3. Trace posterior subtalar joint effusion. 4. Trace fluid within the retrocalcaneal bursa which could indicate minimal bursitis versus normal variation.
== END 2023-02-21 17:17 | disposition home or self-care (01) ==
LOC: HO.MRI 17:16
PROVIDERS: PCP Pediatrics; Visit Provider Physician Assistant
DX: S93.401A Sprain of unspecified ligament of right ankle, initial encounter (principal)
CPT/HCPCS: 73721

== ENCOUNTER 2023-02-22 15:12 | Outpatient (AMB) | payer BC, SELFPAY ==
--- NOTE | 2023-02-22 15:13 | A.OFFVIS_ITS ---
Intake Intake Visit Reasons: Telehealth Allergies No Known Allergies Allergy (Verified 02/06/23 14:46) HPI Telehealth HPI Details 22 yo male presents for telehealth visit right ankle s/p MRI. He states he continues to have some discomfort in the right ankle with activity. He continues to use the lace up aso. [facility] Social History (Updated 02/06/23 @ 14:42 by Donna Huynh [facility]) Alcohol intake: current Alcohol intake frequency: a few times a week Patient Tobacco Use Status: Never used Tobacco Current occupation: [employer] [place] Review of Systems Const All systems reviewed & are unremarkable except as noted in HPI and below Physical Exam Resp Effort & Inspection: normal respiratory effort and able to speak in complete sentences Results Reviewed Results Reviewed: MR ankle RT wo con IMPRESSION: 1. Focal osseous contusion within the anteromedial aspect of the talar head/neck without an associated fracture line. 2. Grade 1 sprain/partial tear of the deltoid ligament. 3. Trace posterior subtalar joint effusion. 4. Trace fluid within the retrocalcaneal bursa which could indicate minimal bursitis versus normal variation. Assessment & Plan Assessment & Plan (1) Right ankle sprain: Code(s): S93.401A - Sprain of unspecified ligament of right ankle, initial encounter Qualifiers: Encounter type: initial encounter Involved ligament of ankle: anterior talofibular ligament Qualified Code(s): S93.491A - Sprain of other ligament of right ankle, initial encounter Plan: We discussed the findings in the MRI and the options available. I encouraged him to continue with the use of the brace while recovering. He was also given an order for PT to work on ROM, gentle strength and proprioceptive training. I would except full recovery anywhere from 3-6 months from date of injury given the bone contusion and this being a weight bearing joint. He should continue to ice and elevate, NSAID use as needed. If symptoms persist or worsen he should see us back, otherwise f/u prn. Telehealth Telehealth Location of provider rendering services: practice address Location of patient: address on file Patient Identification confirmed using: Name, : Yes Telehealth method: voice only Patient verbally consented to treatment: Yes Patient verbally consented to billing insurance company: Yes Patient informed of any privacy concerns related to visit: Yes Minutes spent on Phone/Video with Pt.: 10 Coding Level of Care Code Tele Est Pt Level 3 (21779) Diagnoses Sprain of anterior talofibular ligament of right ankle, initial encounter S93.491A Encounter type: initial encounter Involved ligament of ankle: anterior talofibular ligament
== END 2023-02-22 15:20 | disposition home or self-care (01) ==
LOC: HO.HOS 15:12
PROVIDERS: PCP Pediatrics; Visit Provider Physician Assistant
DX: S93.491A Sprain of other ligament of right ankle, initial encounter (principal)
CPT/HCPCS: 99441

== ENCOUNTER → 2023-02-22 15:12 | Outpatient (BNVA) | payer BC, SELFPAY | PROVIDERS: PCP Pediatrics; Visit Provider Physician Assistant ==

== ENCOUNTER → 2024-01-30 14:09 | Outpatient (BNVA) | payer OTHER, SELFPAY | PROVIDERS: PCP Pediatrics; Visit Provider Physician Assistant | DX: Z13.89 Encounter for screening for other disorder (principal) | CPT/HCPCS: 73564; 99203 ==

== ENCOUNTER → 2024-02-04 09:25 | Outpatient (BNVA) | payer OTHER, SELFPAY | PROVIDERS: PCP Pediatrics; Visit Provider Physician Assistant Medical | DX: Z13.89 Encounter for screening for other disorder (principal) | CPT/HCPCS: 99213 ==